=== PATIENT | male | born 1990 | race Caucasian/White ===

== ENCOUNTER 2016-12-17 01:33 | Emergency (ER) | payer BC ==
[~2016-12-17] VITALS: Ht 180.3 cm; Wt 65.8 kg
[2016-12-17 01:45] VITALS: BP 99/71
[2016-12-17] MEDS ORDERED: Famotidine 20 MG/ 2ML VIAL IVP ONE (02:15)
[2016-12-17] MEDS ORDERED: Tubing IV Cassette IV ONE (02:24)
[2016-12-17 02:52] LABS: APPEARANCE,URINE CLEAR; KETONES,URINE 2+ (NEGATIVE); LEUKOCYTE ESTERASE ,URINE 1+ (NEGATIVE); NITRITE,URINE NEGATIVE (NEGATIVE); PH,URINE 8 (4.5-8.0); PROTEIN,URINE 2+ (NEGATIVE); UROBILINOGEN,URINE 1 MG/DL (0.0-1.0)
[2016-12-17 02:55] LABS: MEAN CORPUSCULAR HEMOGLOBIN 30.8 PG (27.0-31.0); MEAN CORPUSCULAR HGB CONC 34.1 G/DL (32.0-36.0); MEAN CORPUSCULAR VOLUME 91 FL (80-99); MEAN PLATELET VOLUME 7.1 FL (6.5-10.1); PLATELET COUNT 231 K/UL (150-450); RED BLOOD COUNT 5.37 M/UL (4.70-6.10); RED CELL DISTRIBUTION WIDTH 11.4 % (11.6-14.8); WHITE BLOOD COUNT 12.2 K/UL (4.8-10.8)
[2016-12-17 02:59] LABS: RBC,URINE 0-2 /HPF (0 - 0)
[2016-12-17 03:11] LABS: ALANINE AMINOTRANSFERASE 29 U/L (3-41); ANION GAP 18 (5-15); ASPARTATE AMINO TRANSFERASE 32 U/L (5-40); CALCIUM 9.5 mg/dL (8.6-10.2); CARBON DIOXIDE 26 mEQ/L (20-30); CHLORIDE 97 mEQ/L (98-107); CREATININE 1.2 mg/dL (0.7-1.2); GLOMERULAR FILTRATION RATE > 60 mL/min (>60); HEMOLYSIS 3; LIPASE 23 U/L (< 60); POTASSIUM 4.3 mEQ/L (3.4-4.9); SODIUM 141 mEQ/L (135-145); TOTAL PROTEIN 7.1 g/dL (6.6-8.7)
[2016-12-17 03:45] VITALS: BP 101/75
[2016-12-17 04:37] LABS: BILIRUBIN,DIRECT 0.2 mg/dL (0.1-0.3)
--- NOTE | 2016-12-17 05:22 | Emergency Room Report ---
History of Present Illness General Chief Complaint: Vomiting Source: Patient Present Illness HPI The patient is vomiting all day today. He's not sure if he ate something bad. Other people ate the the same food and are not affected. He is under stress. Has some abdominal discomfort. He denies any diarrhea. He did drink margaritas 2 nights ago. No fevers, dysuria. No blood or melena. No chest pain, dizziness. He has had problems with vomiting once before. 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 Reviewed Nursing Documentation: PMH: Agreed, PSxH: Agreed Nursing Documentation-PMH Past Medical History: No Stated History Review of Systems All Other Systems: negative except mentioned in HPI Physical Exam Vital Signs Date Time Temp Pulse Resp B/P Pulse Ox O2 Delivery O2 Flow Rate FiO2 12/17/16 01:45 98.8 140 17 99/71 99 Room Air Sp02 EP Interpretation: reviewed, normal General Appearance: well appearing, no apparent distress, GCS 15 Head: normocephalic Eyes: bilateral eye normal inspection ENT: dry mucus membranes Neck: supple Respiratory: lungs clear, normal breath sounds Cardiovascular #1: regular rate, rhythm Cardiovascular #2: 2+ radial (R) Gastrointestinal: normal inspection, normal bowel sounds, non tender, no mass, non-distended, scaphoid Musculoskeletal: back normal, gait/station normal, normal range of motion Neurologic: alert, oriented x3, grossly normal Psychiatric: mood/affect normal Skin: normal inspection, warm/dry Medical Decision Making Diagnostic Impression: Primary Impression: Vomiting Qualified Codes: R11.2 - Nausea with vomiting, unspecified ER Course Pt with vomiting. Ddx: gastritis, viral, food poisoning, stress amongst others. Needs IV hydration and zofran. Will also give pepcid. Will review labs. Labs with slight leukocytosis and elevated glucose. (Reviewed with patient.) Improved with treatment. Arlene PO. Patient stable for outpatient observation and treatment. Laboratory Tests Test 12/17/16 02:20 12/17/16 02:25 White Blood Count 12.2 K/UL (4.8-10.8) H Red Blood Count 5.37 M/UL (4.70-6.10) Hemoglobin 16.6 G/DL (14.2-18.0) Hematocrit 48.6 % (42.0-52.0) Mean Corpuscular Volume 91 FL (80-99) Mean Corpuscular Hemoglobin 30.8 PG (27.0-31.0) Mean Corpuscular Hemoglobin Concent 34.1 G/DL (32.0-36.0) Red Cell Distribution Width 11.4 % (11.6-14.8) L Platelet Count 231 K/UL (150-450) Mean Platelet Volume 7.1 FL (6.5-10.1) Neutrophils (%) (Auto) % (45.0-75.0) Lymphocytes (%) (Auto) % (20.0-45.0) Monocytes (%) (Auto) % (1.0-10.0) Eosinophils (%) (Auto) % (0.0-3.0) Basophils (%) (Auto) % (0.0-2.0) Sodium Level 141 mEQ/L (135-145) Potassium Level 4.3 mEQ/L (3.4-4.9) Chloride Level 97 mEQ/L (98-107) L Carbon Dioxide Level 26 mEQ/L (20-30) Anion Gap 18 (5-15) H Blood Urea Nitrogen 19 mg/dL (7-23) Creatinine 1.2 mg/dL (0.7-1.2) Estimate Glomerular Filtration Rate > 60 mL/min (>60) Glucose Level 149 mg/dL (74-106) H Calcium Level 9.5 mg/dL (8.6-10.2) Total Bilirubin 1.3 mg/dL (0.0-1.2) H Direct Bilirubin 0.2 mg/dL (0.1-0.3) Aspartate Amino Transferase (AST) 32 U/L (5-40) Alanine Aminotransferase (ALT) 29 U/L (3-41) Alkaline Phosphatase 45 U/L (40-129) Total Protein 7.1 g/dL (6.6-8.7) Albumin 4.8 g/dL (3.5-5.2) Globulin 2.3 g/dL Albumin/Globulin Ratio 2.0 (1.0-2.7) Lipase 23 U/L (< 60) Urine Color Yellow Urine Appearance Clear Urine pH 8 (4.5-8.0) Urine Specific [place] 1.010 (1.005-1.035) Urine Protein 2+ (NEGATIVE) H Urine Glucose (UA) Negative (NEGATIVE) Urine Ketones 2+ (NEGATIVE) H Urine Occult Blood Negative (NEGATIVE) Urine Nitrite Negative (NEGATIVE) Urine Bilirubin Negative (NEGATIVE) Urine Urobilinogen 1 MG/DL (0.0-1.0) H Urine Leukocyte Esterase 1+ (NEGATIVE) H Urine RBC 0-2 /HPF (0 - 0) H Urine WBC 2-4 /HPF (0 - 0) Urine Squamous Epithelial Cells None /LPF (NONE/OCC) Urine Bacteria None /HPF (NONE) Last Vital Signs Date Time Temp Pulse Resp B/P Pulse Ox O2 Delivery O2 Flow Rate FiO2 12/17/16 06:11 98.6 99 18 105/72 99 Room Air Status: improved Disposition: HOME, SELF-CARE Condition: Improved Scripts Famotidine (PEPCID) 20 Mg Tablet 20 MG ORAL DAILY, #20 TAB 0 Refills Prov: Hernandez Mcdaniel M.D. 12/17/16 Ondansetron Odt* (ZOFRAN ODT*) 4 Mg Tab.rapdis 4 MG ORAL Q8HR Y for Nausea & Vomiting, #6 TAB 0 Refills Prov: Hernandez Mcdaniel M.D. 12/17/16 Referrals: NOT CHOSEN [facility]/,REFERRING (PCP) Hernandez Mcdaniel M.D. Dec 17, 2016 05:22
[2016-12-17] MEDS ORDERED: PEPCID20 MG ORAL (05:26)
[2016-12-17] MEDS ORDERED: ZOFRAN ODT4 MG ORAL (05:26)
[2016-12-17 05:45] VITALS: BP 105/72
[2016-12-17 06:11] VITALS: BP 105/72
== END 2016-12-17 06:11 | disposition home or self-care (01) ==
LOC: EMR 02:00
DX: R11.2 Nausea with vomiting, unspecified (principal); Z88.1 Allergy status to other antibiotic agents; Z88.2 Allergy status to sulfonamides
CPT/HCPCS: 36415; 80053; 81003; 82248; 83690; 85025; 96374; 96375; 99284; J2405; S0028